=== PATIENT | male | born 1980 | race Caucasian/White ===

== ENCOUNTER 2016-09-30 14:38 | Observation (INO) | payer BC ==
--- NOTE | 2016-09-30 14:49 | Emergency Department Record ---
History of Present Illness - General Chief Complaint: Indigestion Stated Complaint: CHEST DISCOMFORT,NAUSEA Time Seen by Provider: 09/30/16 14:48 Source: Patient Mode of Arrival: Ambulatory Limitations: No limitations - History of Present Illness Initial Comments: The patient is here due to an episode of chest discomfort which occurred about 2.5 hours ago. He was driving in his car when he felt the sudden onset of epigastric and chest discomfort that felt like heartburn. It did radiate up to the upper part of his chest. He did develop nausea with it and it was associated with some retrosternal chest pain for 1-2 minutes. The onset was fairly sudden and then slowly resolved over about 10-15 minutes. He denied any WAYLON, SOB, or sweating with the discomfort. The patient has not had any symptoms since and denies any RAYA, or CP with exertion. He does have cardiac risk factors of HTN, high cholesterol and a positive family hx of CAD. MD Complaint: Other Onset/Timin -: Hour(s) Onset: Other Pain Location: Substernal, Epigastric Pain Radiation: None Severity: Moderate Quality: Sharp Improves With: Nothing Anginal Symptoms: Nausea Treatments Prior to Arrival: None - Related Data Home Medications Medication Instructions Recorded Confirmed Last Taken Amlodipine Besylate/Benazepril 1 each PO DAILY 09/30/16 09/30/16 09/30/16 [Amlodipine-Benazepril 5-20 mg] Aspirin 81 mg PO DAILY 09/30/16 09/30/16 09/30/16 Simvastatin [Simvastatin] 20 mg PO DAILY 09/30/16 09/30/16 09/30/16 Allergies Allergy/AdvReac Type Severity Reaction Status Date / Time No Known Drug Allergies Allergy Verified 09/30/16 14:48 Travel Screening - Travel/Exposure Within Last 30 Days Have you traveled within the last 30 days?: No Review of Systems Constitutional: Denies: Chills, Fever Eyes: Denies: Eye discharge ENT: Denies: Congestion Respiratory: Denies: Cough, Dyspnea Cardiovascular: Reports: Chest pain. Denies: Dyspnea on exertion Endocrine: Denies: Fatigue Gastrointestinal: Denies: Diarrhea, Vomiting Genitourinary: Denies: Dysuria Musculoskeletal: Denies: Back pain Skin: Denies: Bruising Past Medical History - SOCIAL HISTORY Smoking Status: Never smoker Alcohol Use: Occassional Drug Use: None - RESPIRATORY Hx Respiratory Disorders: Yes Hx Sleep Apnea: Yes Hx of CPAP: Yes - CARDIOVASCULAR Hx Cardio Disorders: Yes Hx Hypertension: Yes - NEURO Hx Neuro Disorders: No - GI Hx GI Disorders: No - Hx Genitourinary Disorders: No - ENDOCRINE Hx Endocrine Disorders: No - MUSCULOSKELETAL Hx Musculoskeletal Disorders: Yes - PSYCH Hx Psych Problems: No - HEMATOLOGY/ONCOLOGY Hx Hematology/Oncology Disorders: No Family Medical History Any Significant Family History?: Yes Family Hx Comment (NOT TO BE USED IN PLACE OF ITEMS BELOW): Uncle- Heart attack Hx Heart Disease: Father Physical Exam - General General Appearance: Alert, Oriented x3, Cooperative, No acute distress - Head Head exam: Atraumatic, Normocephalic, Normal inspection - Eye Eye exam: Normal appearance, PERRL - Neck Neck exam: Normal inspection, Full ROM. negative: Tenderness - Respiratory Respiratory exam: Normal lung sounds bilaterally. negative: Respiratory distress - Cardiovascular Cardiovascular Exam: Regular rate, Normal rhythm, Normal heart sounds. negative : Diastolic murmur, Systolic murmur - GI/Abdominal GI/Abdominal exam: Soft, Normal bowel sounds. negative: Tenderness - Extremities Extremities exam: Normal inspection, Full ROM, Normal capillary refill. negative: Tenderness - Back Back exam: Reports: Normal inspection - Neurological Neurological exam: Alert, Normal gait. negative: Abnormal gait, Motor sensory deficit - Skin Skin exam: Dry Course Vital Signs 09/30/16 14:41 Temperature 97.4 F L Pulse Rate 77 Respiratory 20 Rate Blood Pressure 168/84 Pulse Ox 99 - Reevaluation(s) Reevaluation #1: The patient is doing well. He has had no pain or WAYLON. I did discuss the normal results with the patient and and did recommend a short stay admission for monitoring and a stress test. The patient did agree to the plan. 09/30/16 16:03 Reevaluation #2: The patient is doing very well. He has no CP or SOB now. I did discuss the case with Dr. Landa and she does accept the admission. 09/30/16 16:17 Medical Decision Making - Data Complexity MDM Data: Labs Ordered and/or Reviewed, X-Ray Ordered and/or Reviewed (CXR: Neg per Rad.), EKG Ordered and/or Reviewed - Lab Data Result diagrams: 09/30/16 15:05 09/30/16 15:05 - EKG Data -: EKG Interpreted by Me EKG: No Acute Changes, Normal EKG Disposition Disposition: Admit Clinical Impression: Chest pain Qualifiers: Chest pain type: unspecified Qualified Code(s): R07.9 - Chest pain, unspecified Disposition: Still a Patient at [facility] Decision to Admit: Admit from ER Decision to Admit Date: 09/30/16 Decision to Admit Time: 16:18 Accepting Physician: Syeda Time Discussed w/Accepting Physician: 16:19 Forms: Patient Portal Access Time of Disposition: 16:19
[2016-09-30 15:19] LABS: BASO % 0.2 % (0-6); EOS % 1.2 % (0-6); GRAN % 67.3 % (47-80); HEMATOCRIT 43.6 % (42.0-52.0); HEMOGLOBIN 14.9 gm/dl (14.0-18.0); LYMPH % 22.1 % (16-45); MEAN CELL VOLUME 85.5 fl (81-97); MEAN CORPUSCULAR HEMOGLOBIN 29.2 pg (27-33); MEAN CORPUSCULAR HGB CONC 34.2 g/dl (32-36); MEAN PLATELET VOLUME 8.9 fl (7.4-10.4); MONO % 9.2 % (0-9); PLATELET COUNT 271 K/uL (130-400); RED CELL DISTRIBUTION WIDTH 13.8 % (11.5-14.5); WHITE BLOOD COUNT W/O DIFF 8.9 K/uL (4.2-12.2)
[2016-09-30 15:31] LABS: ANION GAP 11.5 (7-16); BLOOD UREA NITROGEN 15 mg/dL (9-20); CARBON DIOXIDE 25.5 mmol/L (22-30); CREATINE PHOSPHOKINASE 210 U/L (55-170); EST GLOMERULAR FILTRATION RATE > 60 ml/min; GLUCOSE,RANDOM 95 mg/dL (70-110)
[2016-09-30 15:33] LABS: INR 0.99; PARTIAL THROMBOPLASTIN TIME 30.5 SECONDS (24.5-39.1); PROTHROMBIN TIME (PATIENT) 11.2 SECONDS (9.5-12.1)
[2016-09-30 15:43] LABS: CKMB 1.1 ug/L (0-6)
[2016-09-30 15:44] LABS: TROPONIN I < 0.012 ng/mL (0.00-0.034)
[2016-09-30] MEDS ORDERED: ASPIRIN 325 MG TABLET PO ONE (16:02)
[2016-09-30 20:49] LABS: CKMB 0.9 ug/L (0-6)
[2016-09-30 20:50] LABS: TROPONIN I < 0.012 ng/mL (0.00-0.034)
--- NOTE | 2016-10-01 07:16 | RADIOLOGY REPORT ---
EXAM: CHEST, TWO VIEWS HISTORY: DIFFICULTY BREATHING. TECHNIQUE: Frontal and lateral views of the chest were obtained. Comparison: None. FINDINGS: The heart size is normal. The lungs are clear. There is no pneumothorax. IMPRESSION: NEGATIVE CHEST EXAMINATION. JOB NUMBER: [id number] MTDD
[2016-10-01] MEDS ORDERED: SIMVASTATIN 20 MG TABLET PO SCH (10:00)
[2016-10-01] MEDS ORDERED: BENAZEPRIL 20 MG TABLET PO SCH (10:00)
[2016-10-01] MEDS ORDERED: ASPIRIN 325 MG TAB ENTERIC-COATED PO SCH (10:00)
[2016-10-01] MEDS ORDERED: AMLODIPINE BESYLATE 5MG TAB PO SCH (10:00)
--- NOTE | 2016-10-01 13:27 | History & Physical ---
History of Present Illness - Date of Service Date of Service for History & Physical: 10/01/16 - History of Present Illness Admitting Diagnosis: 1. Chest pain, R/O [place]. History of Present Illness: 35 y/o male with CC chest pain admitted for rule out [place]. PMX HTN, high cholesterol. Has + family history of CAD. Father age 46 from [place] x2 ( first [place] age 42 with PTCA, poor lifestyle choices). Prior to admission had 2.5 hour history of sudden onset epigastric and retrosternal chest discomfort that felt like like heartburn followed by nausea. Chest discomfort radiated to left upper side of chest. Symptoms subsided over 10 -15 minutes. Denies WAYLON, shortness of breath, diaphoresis, dizziness. Reports had an episode of heartburn about 6-7 years ago, experienced "typical heartburn symptoms", burning sensation to epigastic area. Reports today's symptoms were very different from previous episodes of heartburn. Has seen Dr Dudley ([facility]) about 3 years ago. While in the ED VS: T 97.4, P 77, BP 168/84, RR 20. SPO2 99% RA. WBC 8.9, CMP normal, Plt 271, CK 210, MB#1 1.1, Trop #1 0.012. EKG NSR, boarderline intraventricular conduction delay. CXR no acute process. Admitted for observation, completion of cardiac enzyme series, cardiology consult with stress test and echo 2nd strong family and personal history CAD. 10/01- Patient resting comfortably. Denies any further chest pain, WAYLON, shortness of breath. VSS. Telemety remain NRR. Awaiting cardiac stress and echo. PCP: Dr. Jeremy Lilly Cardiology: Dr Dudley [facility] Travel Screening - Travel/Exposure Within Last 30 Days Have you traveled within the last 30 days?: No - Travel/Exposure Within Last Year Have you traveled outside the [place] in the last year?: No - Additonal Travel Details Have you been exposed to anyone with a communicable illness?: No - Travel Symptoms Symptom Screening: None Review of Systems Constitutional: Denies: Chills, Fever Eyes: Denies: Eye discharge ENT: Denies: Congestion Respiratory: Denies: Cough, Dyspnea Cardiovascular: Reports: Chest pain. Denies: Dyspnea on exertion Endocrine: Denies: Fatigue Gastrointestinal: Denies: Diarrhea, Vomiting Genitourinary: Denies: Dysuria Musculoskeletal: Denies: Back pain Skin: Denies: Bruising Past Medical History - SOCIAL HISTORY Smoking Status: Never smoker Alcohol Use: Occassional Alcohol Use Comment: beer Drug Use: None - RESPIRATORY Hx Respiratory Disorders: Yes Hx Sleep Apnea: Yes Hx of CPAP: Yes - CARDIOVASCULAR Hx Cardio Disorders: Yes Hx Chest Pain: Yes Hx Hypertension: Yes - NEURO Hx Neuro Disorders: No - GI Hx GI Disorders: No - Hx Genitourinary Disorders: No - ENDOCRINE Hx Endocrine Disorders: No Hx Diabetes: No Hx Thyroid Disease: No - MUSCULOSKELETAL Hx Musculoskeletal Disorders: Yes Comment:: achilles tendon prob - PSYCH Hx Psych Problems: No - HEMATOLOGY/ONCOLOGY Hx Hematology/Oncology Disorders: No Family Medical History Any Significant Family History?: Yes Family Hx Comment (NOT TO BE USED IN PLACE OF ITEMS BELOW): Uncle- Heart attack...mom's side. father heart attack Hx Heart Disease: Father H&P Meds/Allergies - Allergies Allergies: Allergies Allergy/AdvReac Type Severity Reaction Status Date / Time No Known Drug Allergies Allergy Verified 09/30/16 14:48 - Home Medications Home Medications Medication Instructions Recorded Confirmed Last Taken Amlodipine Besylate/Benazepril 1 each PO DAILY 09/30/16 09/30/16 09/30/16 [Amlodipine-Benazepril 5-20 mg] Aspirin 81 mg PO DAILY 09/30/16 09/30/16 09/30/16 Simvastatin [Simvastatin] 20 mg PO DAILY 09/30/16 09/30/16 09/30/16 - Active Medications Active Medications: Current Medications Amlodipine Besylate (Norvasc) 5 mg PO DAILY [facility] Last Admin: 10/01/16 11:41 Dose: 5 mg Aspirin (Ecotrin (Ec)) 325 mg PO DAILY [facility] Last Admin: 10/01/16 11:40 Dose: 325 mg Benazepril HCl (Lotensin) 20 mg PO DAILY [facility] Last Admin: 10/01/16 11:41 Dose: 20 mg Simvastatin (Zocor) 20 mg PO DAILY [facility] Last Admin: 10/01/16 11:42 Dose: 20 mg Physical Exam - Vital Signs Vital Signs: Vital Signs - Last 24 Hrs Temp Pulse Pulse Resp BP BP Pulse Ox 10/01/16 04:04 61 16 132/67 97 10/01/16 02:39 97.8 F 66 16 117/57 96 09/30/16 22:49 63 18 130/59 98 09/30/16 17:53 66 16 09/30/16 16:50 66 16 136/76 97 09/30/16 16:49 97.5 F L 67 18 153/91 97 - General General Appearance: Alert, Oriented x3, Cooperative, No acute distress Limitations: No limitations - Head Head exam: Atraumatic, Normocephalic, Normal inspection - Eye Eye exam: Normal appearance, PERRL - Neck Neck exam: Normal inspection, Full ROM. negative: Tenderness - Respiratory Respiratory exam: Normal lung sounds bilaterally. negative: Respiratory distress - Cardiovascular Cardiovascular Exam: Regular rate, Normal rhythm, Normal heart sounds. negative : Diastolic murmur, Systolic murmur - GI/Abdominal GI/Abdominal exam: Soft, Normal bowel sounds. negative: Tenderness - Extremities Extremities exam: Normal inspection, Full ROM, Normal capillary refill. negative: Tenderness - Back Back exam: Reports: Normal inspection - Neurological Neurological exam: Alert, Normal gait. negative: Abnormal gait, Motor sensory deficit - Skin Skin exam: Dry Results - Labs Result Diagrams: 09/30/16 15:05 09/30/16 15:05 Labs Last 24 Hours: Laboratory Results - last 24 hr 09/30/16 10/01/16 10/01/16 20:20 04:00 04:00 CK-MB (CK-2) 0.9 0.8 Troponin I < 0.012 < 0.012 VTE H&P Assessment - Risk for VTE Risk for VTE: Yes Risk Level: Low Risk Assessment Date: 10/01/16 Risk Assessment Time: 15:47 VTE Orders Placed or Will Be Placed: Yes Plan - Detailed Diagnosis and Plan (1) Chest pain Status: Acute Qualifiers: Chest pain type: unspecified Qualified Code(s): R07.9 - Chest pain, unspecified Base Code: R07.9 - CHEST PAIN, UNSPECIFIED Comment: 10/01- Admitted for chest pain r/o [place]. While in the ED VS: T 97.4, P 77 , BP 168/84, RR 20. SPO2 99% RA. WBC 8.9, CMP normal, Plt 271, CK 210, MB#1 1.1 , Trop #1 0.012. EKG NSR, boarderline intraventricular conduction delay. CXR no acute process. Admitted for observation, completion of cardiac enzyme series, cardiology consult with stress test and echo 2nd strong family and personal history CAD. Troponin #1 0.012, #2 0.012, #3 0.012 MB #1 1.1, #2 0.9, #3 0.8. Cardiac stress test normal. Echocardiogram complete- difficult to visualize structures due to morbid obesity, EF 57%. Chest pain etiology not likely cardiac in nature. - follow up with [facility] Dr Dudley 1-2 weeks after discharge - advised portion control, discussed steps to assist in weight loss (2) DVT prophylaxis Status: Acute Base Code: [id number] - Comment: 10/01- encourage frequent ambulation during this hospitalization (3) Full code status Status: Acute Base Code: Z78.9 - OTHER SPECIFIED HEALTH STATUS Comment: 10/01- will remain full code during this hospitalization
--- NOTE | 2016-10-01 13:28 | Discharge Summary ---
Providers Discharge Summary Date: 10/01/16 Date of admission: 09/30/16 16:47 Attending physician: TANIA PADILLA Primary care physician: JESSICA GUZMAN D.O. Consults: Consult Orders 09/30/16 17:05 Consult - Cardiology NOW Consulting Provider: Mehul Reyes Physician Instructions: Per Dr. Remy pt needs Stress Test and Cardiac Echo Reason For Exam: Chest pain Does pt have current traffic routing engineer?: Not Established 09/30/16 17:48 Consult - Cardiology NOW Consulting Provider: Mehul Reyes Physician Instructions: Reason For Exam: chest pain Does pt have current traffic routing engineer?: Not Established Comment: also stress test and echo Physical Exam - Vital Signs Vital Signs: Vital Signs - Last 24 Hrs Temp Pulse Pulse Resp BP BP Pulse Ox 10/01/16 04:04 61 16 132/67 97 10/01/16 02:39 97.8 F 66 16 117/57 96 09/30/16 22:49 63 18 130/59 98 09/30/16 17:53 66 16 09/30/16 16:50 66 16 136/76 97 09/30/16 16:49 97.5 F L 67 18 153/91 97 - General General Appearance: Alert, Oriented x3, Cooperative, No acute distress Limitations: No limitations - Head Head exam: Atraumatic, Normocephalic, Normal inspection - Eye Eye exam: Normal appearance, PERRL - Neck Neck exam: Normal inspection, Full ROM. negative: Tenderness - Respiratory Respiratory exam: Normal lung sounds bilaterally. negative: Respiratory distress - Cardiovascular Cardiovascular Exam: Regular rate, Normal rhythm, Normal heart sounds. negative : Diastolic murmur, Systolic murmur - GI/Abdominal GI/Abdominal exam: Soft, Normal bowel sounds. negative: Tenderness - Extremities Extremities exam: Normal inspection, Full ROM, Normal capillary refill. negative: Tenderness - Back Back exam: Reports: Normal inspection - Neurological Neurological exam: Alert, Normal gait. negative: Abnormal gait, Motor sensory deficit - Skin Skin exam: Dry Hospitalization - Hospitalization Admission Diagnosis: 1. Chest pain, R/O [place]. - Problem List/Discharge Diagnosis (1) Chest pain Status: Acute Discharge Diagnosis: Chest pain type: unspecified Qualified Code(s): R07.9 - Chest pain, unspecified Base Code: R07.9 - CHEST PAIN, UNSPECIFIED Comment: 10/01- Admitted for chest pain r/o [place]. While in the ED VS: T 97.4, P 77 , BP 168/84, RR 20. SPO2 99% RA. WBC 8.9, CMP normal, Plt 271, CK 210, MB#1 1.1 , Trop #1 0.012. EKG NSR, boarderline intraventricular conduction delay. CXR no acute process. Admitted for observation, completion of cardiac enzyme series, cardiology consult with stress test and echo 2nd strong family and personal history CAD. Troponin #1 0.012, #2 0.012, #3 0.012 MB #1 1.1, #2 0.9, #3 0.8. Cardiac stress test normal. Echocardiogram complete- difficult to visualize structures due to morbid obesity, EF 57%. Chest pain etiology not likely cardiac in nature. - follow up with [facility] Dr Dudley 1-2 weeks after discharge - advised portion control, discussed steps to assist in weight loss (2) DVT prophylaxis Status: Acute Base Code: [id number] - Comment: 10/01- encourage frequent ambulation during this hospitalization (3) Full code status Status: Acute Base Code: Z78.9 - OTHER SPECIFIED HEALTH STATUS Comment: 10/01- will remain full code during this hospitalization - Hospitalization Course Disposition: Home, Self-Care Hospital Course: 35 y/o male with CC chest pain admitted for rule out [place]. PMX HTN, high cholesterol. Has + family history of CAD. Father age 46 from [place] x2 ( first [place] age 42 with PTCA, poor lifestyle choices). Prior to admission had 2.5 hour history of sudden onset epigastric and retrosternal chest discomfort that felt like like heartburn followed by nausea. Chest discomfort radiated to left upper side of chest. Symptoms subsided over 10 -15 minutes. Denies WAYLON, shortness of breath, diaphoresis, dizziness. Reports had an episode of heartburn about 6-7 years ago, experienced "typical heartburn symptoms", burning sensation to epigastic area. Reports today's symptoms were very different from previous episodes of heartburn. Has seen Dr Dudley ([facility]) about 3 years ago. While in the ED VS: T 97.4, P 77, BP 168/84, RR 20. SPO2 99% RA. WBC 8.9, CMP normal, Plt 271, CK 210, MB#1 1.1, Trop #1 0.012. EKG NSR, boarderline intraventricular conduction delay. CXR no acute process. Admitted for observation, completion of cardiac enzyme series, cardiology consult with stress test and echo 2nd strong family and personal history CAD. Procedures: Cardiology Procedures 10/01/16 08:00 Echocardiogram 2D - Limited ONCE Stress EKG/STD Treadmill ONCE Discharge Medications - Discharge Medications Home Medications: Ambulatory Orders Amlodipine Besylate/Benazepril [Amlodipine-Benazepril 5-20 mg] 1 each PO DAILY 09/30/16 [Last Taken 09/30/16] Aspirin 81 mg PO DAILY 09/30/16 [Last Taken 09/30/16] Simvastatin [Simvastatin] 20 mg PO DAILY 09/30/16 [Last Taken 09/30/16] Discharge Plan - Discharge Instructions Activity at Discharge: Increase Activity as Tolerated Diet at Discharge: Low Fat, Low Cholesterol Instructions: Chest Pain (DC) Additional Instructions: Follow up with [facility] as instructed. See pre-printed discharge instructions given to patient.
== END 2016-10-01 14:00 | disposition home or self-care (01) ==
LOC: ER 14:38 → MEDSURG 16:47
PROVIDERS: ADMIT Family Medicine; ATTEND Family Medicine
DX: R07.9 Chest pain, unspecified (principal); Z78.9 Other specified health status; I10 Essential (primary) hypertension; E78.00 Pure hypercholesterolemia, unspecified
CPT/HCPCS: 99285 ×2; 82550; 85025; 85730; 85610; 82553 ×2; 84484 ×2; 80048; 71020; 93005 ×2; 93017; 93010 ×2; G0378 ×2; 99220